=== PATIENT | female | born 1965 | race African-American/Black ===

== ENCOUNTER 2017-03-10 11:08 | Inpatient (IN) | payer OTHER ==
[2017-03-10 14:04] VITALS: BMI 37.5
--- NOTE | 2017-03-10 15:35 | HP ---
COWS - Scale Resting Pulse: 1= [place] 81-100 Sweatin= Chills/Flushing Restless Observation: 3= Extraneous Movement Pupil Size: 2= Moderately Dilated Bone or Joint Aches: 4=Acute Joint/Muscle Pain Runny Nose/ Eye Tearin= Runny Nose/Eyes GI Upset > 30mins: 3= Vomiting/Diarrhea Tremor Observation: 2= Slight Tremor Visible Yawning Observation: 2= >3x During Session Anxiety or Irritability: 2=Irritable/Anxious Goose Flesh Skin: 0=Smooth Skin COWS Score: 22 Admission [facility] Chief Complaint: DETOX TX FOR HEROIN DEPENDENCE Allergies/Adverse Reactions: Allergies Allergy/AdvReac Type Severity Reaction Status Date / Time Penicillins Allergy Severe Hives Verified 03/10/17 16:18 shellfish derived Allergy Severe Hives Verified 03/10/17 16:18 simvastatin Allergy Severe Hives Verified 03/10/17 16:18 History of Present Illness: 51 Y/O AA/MALE WITH A HX HEROIN AND COCAINE DEPENDENCE SEEKING DETOX TX. PT ON RX KLONOPIN BUT TOX NEGATIVE. Exam Limitations: No Limitations - Ebola screening Have you traveled outside of the country in the last 21 days: No Have you had contact with anyone from an Ebola affected area: No Have you been sick,other than usual withdrawal symptoms: No - Review of Systems Constitutional: Chills, Night Sweats, Changes in sleep EENT: reports: Tearing, Nose Congestion, Dental Problems Respiratory: reports: Shortness of Breath (HX ASTHMA/BRONCHITIS), Wheezing, Other (CHF HX) GI: reports: Constipated, Diarrhea, Nausea, Vomiting : reports: Frequency Musculoskeletal: reports: Back Pain, Joint Pain, Muscle Pain, Other (KNEE REPLACEMENT X 2.) Integumentary: reports: Bruising Neuro: reports: Headache, Unsteady Gait (DUE TO LEFT FOOT SX) Endocrine: reports: No Symptoms Reported Hematology: reports: Anemia (ON MEDS), Blood Clots (HX PE) Psychiatric: reports: Orientated x3, Anxious, Depressed Other Systems: Reviewed and Negative Patient History - Patient Medical History Hx Anemia: Yes (ON IRON PILLS) Hx Asthma: Yes (ADVIAR AND ALBUTEROL INHALERS; HX BRONCHITIS) Hx Congestive Heart Failure: Yes Hx Hypertension: Yes (ON LISINOPRIL) Hx Hypercholesterolemia: Yes (NO MEDS) Hx Pacemaker: No HX Cerebrovascular Accident: No Hx Seizures: No Hx Diabetes: Yes (BORDERLINE BUT NOT CURRENTLY ON MED;INSULIN WHILE HOSPITALIZED IN THE PAST.) Hx Gastrointestinal Disorders: Yes (GERD-PRILOSEC ) Hx Genitourinary Disorders: No Hx Sexually Transmitted Disorders: No Hx Renal Disease (ESRD): No Hx Thyroid Disease: No Hx Human Immunodeficiency Virus (HIV): No (NEGATIVE HX) Hx Hepatitis C: No Hx Depression: Yes (ANXIETY DISORDER ON KLONOPIN) Hx Suicide Attempt: No (DENIES) - Patient Surgical History Past Surgical History: Yes Hx Cholecystectomy: Yes (1985) Hx Section: Yes (X 4) Hx Orthopedic Surgery: Yes (KNEE REPLACEMENTS IN 2014 RIGHT KNEE;LEFT KNEE 2015 ) Hx Hysterectomy: No Other Surgical History: LEFT FOOT SX IN 2015 Anesthesia Reaction: No - PPD History Previous Implant?: Yes (PPD+ WITH INH + B6 FOR ALMOST ONE YR) Documented Results: Positive w/o proof Implanted On Prior [facility] Admission?: No PPD to be Administered?: No - Reproductive History Patient is a Female of Child Bearing Age (11 -55 yrs old): Yes LMP comment: ONE YEAR AGO Patient : No - Smoking Cessation Smoking history: Current every day smoker Have you smoked in the past 12 months: Yes Aproximately how many cigarettes per day: 10 Hx Chewing Tobacco Use: No Initiated information on smoking cessation: Yes 'Breaking Loose' booklet given: 03/10/17 - Substance & Tx. History Hx Substance Use: Yes (HEROIN/COCAINE) Substance Use Type: Cocaine, Heroin Hx Substance Use Treatment: Yes - Substances Abused Heroin Route: Inhalation Frequency: Daily Amount used: 3-4 BAGS Age of first use: 33 Date of Last Use: 03/09/17 Cocaine Route: Smoking Frequency: Daily Amount used: $200-300 Age of first use: 17 Date of Last Use: 03/09/17 Family Disease History - Family Disease History Family Disease History: Diabetes: Father (), Mother (), Son Admission Physical Exam BHS - Vital Signs Vital Signs: Vital Signs - 24 hr 03/10/17 13:45 Temperature 97 F L Pulse Rate 89 Respiratory 20 Rate Blood Pressure 120/86 - Physical General Appearance: Yes: Moderate Distress, Irritable, Anxious HEENTM: Yes: EOMI, Normocephalic, SHIRA, Pharynx Normal Respiratory: Yes: Chest Non-Tender, Lungs Clear, Normal Breath Sounds, No Respiratory Distress Neck: Yes: Supple, Trachea in good position Breast: Yes: Breast Exam Deferred Cardiology: Yes: Regular Rhythm, S1, S2 Abdominal: Yes: Normal Bowel Sounds, Non Tender, Soft Genitourinary: Yes: Other (N/C) Back: Yes: Within Normal Limits Musculoskeletal: Yes: full range of Motion, Gait Steady Extremities: Yes: Normal Range of Motion, Non-Tender Neurological: 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, Fully Oriented, Alert Integumentary: Yes: Dry, Warm Lymphatic: Yes: Within Normal Limits - Diagnostic (1) Uncomplicated opioid dependence Current Visit: Yes Status: Acute (2) Cocaine dependence, uncomplicated Current Visit: Yes Status: Acute (3) Anemia Current Visit: Yes Status: Chronic Qualifiers: Anemia type: iron deficiency (4) Asthma Current Visit: Yes Status: Chronic Qualifiers: Asthma severity: mild intermittent Asthma complication type: uncomplicated Qualified Code(s): J45.20 - Mild intermittent asthma, uncomplicated (5) CHF (congestive heart failure) Current Visit: Yes Status: Chronic (6) Hypertension Current Visit: Yes Status: Chronic Qualifiers: Hypertension type: essential hypertension Qualified Code(s): I10 - Essential (primary) hypertension (7) Borderline diabetes mellitus Current Visit: Yes Status: Suspected (8) PPD positive, treated Current Visit: Yes Status: Resolved (9) GERD (gastroesophageal reflux disease) Current Visit: Yes Status: Chronic Qualifiers: Esophagitis presence: without esophagitis Qualified Code(s): K21.9 - Gastro-esophageal reflux disease without esophagitis (10) Hx pulmonary embolism Current Visit: Yes Status: Resolved Comment: ON XARELTO THERAPY Cleared for Admission BHS - Detox or Rehab Detox Regimen/Protocol: Methadone BHS Breath Alcohol Content Breath Alcohol Content: 0 Urine Pregancy Test - Result Urine Test Results: Negative- NO Line Present Urine Drug Screen - Results Drug Screen Negative: No Urine Drug Screen Results: FAISAL-Cocaine, OPI-Opiates, MTD-Methadone
[2017-03-10] MEDS ORDERED: MAGNESIUM CITRATE 300 ML BOTTLE PO PRN (16:12)
[2017-03-10] MEDS ORDERED: MENTHOL/PHENOL 1 EACH UD MM PRN (16:12)
[2017-03-10] MEDS ORDERED: NICOTINE POLACRILEX 2 MG GUM BC PRN (16:12)
[2017-03-10] MEDS ORDERED: MAG HYDROX/AL HYDROX/SIMETH 30 ML UNIT-DOSE CUP PO PRN (16:12)
[2017-03-10] MEDS ORDERED: guaiFENesin/D-METHORPHAN HB 10 ML UNIT-DOSE CUPS PO PRN (16:12)
[2017-03-10] MEDS ORDERED: P-EPHED 60MG/TRIPROLIDI 2.5MG TABLET PO PRN (16:12)
[2017-03-10] MEDS ORDERED: LOPERAMIDE HCL 2 MG CAPSULE PO PRN (16:12)
[2017-03-10] MEDS ORDERED: MAGNESIUM HYDROX 2400MG/30ML ORAL SUSPENSION 30 ML CUP PO PRN (16:12)
[2017-03-10] MEDS ORDERED: ACETAMINOPHEN 325 MG TABLET (FP) PO PRN (16:12)
[2017-03-10] MEDS ORDERED: IBUPROFEN 400 MG TABLET (FP) PO PRN (16:12)
[2017-03-10] MEDS ORDERED: ALBUTEROL SO4 6.7 GM HFA INHALER IH PRN (16:48)
[2017-03-10] MEDS ORDERED: METHADONE HCL 10 MG TABLET (FOR DETOX USE ONLY) PO ONE ×2 (17:45→23:00)
[2017-03-10] MEDS: diazePAM 5 MG TABLET PO PRN ×2 (18:27→22:07)
[2017-03-10] MEDS: NICOTINE 14 MG/24 HOURS TOPICAL PATCH TD SCH (20:36)
[2017-03-10] MEDS: THIAMINE HCL 100 MG TABLET (FP) PO SCH (22:07)
[2017-03-10] MEDS: CYCLOBENZAPRINE HCL 10 MG TABLET (FP) PO SCH (22:08)
[2017-03-10] MEDS: GABAPENTIN 300 MG CAPSULE (FP) PO SCH (22:08)
[2017-03-11] MEDS: GABAPENTIN 300 MG CAPSULE (FP) PO SCH ×3 (06:20→22:15)
[2017-03-11] MEDS ORDERED: METHADONE HCL 10 MG TABLET (FOR DETOX USE ONLY) PO ONE (10:00)
--- NOTE | 2017-03-11 10:26 | CONSULT ---
[facility] Psychiatric Consult - Data Date of interview: 03/11/17 Admission source: [facility] Identifying data: This is 51 years old female with no psychiatric hospitalization history intoxicated with Opioids, Cocaine, Xanax and Nicotine Substance Abuse History: - Smoking Cessation. Smoking history: Current every day smoker. Have you smoked in the past 12 months: Yes. Aproximately how many cigarettes per day: 10. Hx Chewing Tobacco Use: No. Initiated information on smoking cessation: Yes. 'Breaking Loose' booklet given: 03/10/17. - Substance & Tx. History. Hx Substance Use: Yes (HEROIN/COCAINE). Substance Use Type: Cocaine, Heroin. Hx Substance Use Treatment: Yes. - Substances Abused. Heroin. Route: Inhalation. Frequency: Daily. Amount used: 3-4 BAGS. Age of first use: 33. Date of Last Use: 03/09/17. Cocaine. Route: Smoking. Frequency: Daily. Amount used: $200-300. Age of first use: 17. Date of Last Use: 03/09/17 Medical History: Anemia history, Asthma, CHF, GERD, HTN, PPD+ Hisotyr, Psychiatric History: Patient reports history of depressionj and anxiety, as per compouter there is a history of Borderline personality,. Repoprts taking prior to admission: Trazodone 50mg po qhs. Gabapention 300mg po tid Physical/Sexual Abuse/Trauma History: Denies Additional Comment: Trazodone 50mg po qhs. Gabapention 300mg po tid Mental Status Exam - Mental Status Exam Alert and Oriented to: Person Cognitive Function: Fair Patient Appearance: Unkempt Mood: Sad Affect: Flat Patient Behavior: Sedated Speech Pattern: Delayed Voice Loudness: Mildly Soft/Quiet Thought Process: Circumstantial Thought Disorder: Being Controlled Hallucinations: Denies Suicidal Ideation: Denies Homicidal Ideation: Denies Insight/Judgement: Fair Sleep: Difficulty falling asleep Appetite: Fair Muscle strength/Tone: Normal Gait/Station: Shuffling Additional Comments: Trazodone 50mg po qhs. Gabapention 300mg po tid Psychiatric Findings - Problem List ([place] 1, 2,3) (1) Cocaine dependence, uncomplicated Current Visit: Yes Status: Acute (2) Uncomplicated opioid dependence Current Visit: Yes Status: Acute (3) Borderline diabetes mellitus Current Visit: Yes Status: Suspected (4) Drug-induced mood disorder Current Visit: Yes Status: Acute - Initial Treatment Plan Initial Treatment Plan: Trazodone 50mg po qhs. Gabapention 300mg po tid
[2017-03-11] MEDS ORDERED: AMMONIUM LACTATE 12% LOTION 225 GM BOTTLE TP PRN (10:34)
--- NOTE | 2017-03-11 10:39 | PN ---
BHS COWS - Scale Resting Pulse: 0= [place] 80 or Below Sweatin= Chills/Flushing Restless Observation: 1= Difficult to Sit Still Pupil Size: 1= Pupils >than Normal Bone or Joint Aches: 2= Severe Diffuse Aches Runny Nose/ Eye Tearin= Nasal Congestion GI Upset > 30mins: 1= Stomach Cramp Tremor Observation of Outstretched Hands: 1= Tremor [place], Not Seen Yawning Observation: 0= None Anxiety or Irritability: 2=Irritable/Anxious Goose Flesh Skin: 0=Smooth Skin COWS Score: 10 BHS Progress Note (SOAP) Subjective: interrupted sleep, sweats, dry skin Objective: 03/11/17 10:37 Vital Signs Temperature 97.7 F 03/11/17 10:17 Pulse Rate 73 03/11/17 10:17 Respiratory Rate 18 03/11/17 10:17 Blood Pressure 129/77 03/11/17 10:17 O2 Sat by Pulse Oximetry (%) Laboratory Tests 03/10/17 03/11/17 03/11/17 23:02 06:00 06:00 WBC 9.6 RBC 5.66 H Hgb 15.3 Hct 47.7 H MCV 84.2 MCHC 32.1 RDW 14.5 Plt Count 219 MPV 9.6 Sodium 143 Potassium 4.2 Chloride 106 Carbon Dioxide 31 Anion Gap 6 L BUN 14 Creatinine 0.9 Creat Clearance w eGFR > 60 Random Glucose 89 Calcium 8.9 Total Bilirubin 0.2 AST 11 L ALT 22 Alkaline Phosphatase 92 Total Protein 7.9 Albumin 3.9 Urine Color Dkyellow Urine Appearance Cloudy Urine pH 5.0 Ur Specific [place] 1.026 Urine Protein Negative Urine Glucose (UA) Negative Urine Ketones Negative Urine Blood Negative Urine Nitrite Negative Urine Bilirubin Negative Urine Urobilinogen Negative Ur Leukocyte Esterase Negative pt aox3 in nad ambulating 03/11/17 10:38 Assessment: 03/11/17 10:37 withdrawal sx's dry skin Plan: cont detox increase fluids lachydrin lotion pts own ivory soap
[2017-03-11] MEDS: PRENATAL VITAMINS W/ FOLIC ACID TABLET (FP) PO SCH (10:40)
[2017-03-11] MEDS: ASPIRIN 81 MG CHEWABLE TABLETS PO SCH (10:40)
[2017-03-11] MEDS: diazePAM 5 MG TABLET PO PRN ×2 (10:41→22:15)
[2017-03-11] MEDS: LISINOPRIL 20 MG TABLET (FP) PO SCH (10:41)
[2017-03-11] MEDS: RIVAROXABAN 20 MG TABLET PO SCH (10:41)
[2017-03-11] MEDS: FUROSEMIDE 40 MG TABLET (FP) PO SCH (10:41)
[2017-03-11] MEDS: NICOTINE 14 MG/24 HOURS TOPICAL PATCH TD SCH (10:42)
--- NOTE | 2017-03-11 11:46 | EKG ---
Test Reason : Blood Pressure : / mmHG Vent. Rate : 069 BPM Atrial Rate : 069 BPM P-R Int : 154 ms QRS Dur : 114 ms QT Int : 404 ms P-R-T Axes : 051 007 014 degrees QTc Int : 432 ms NORMAL SINUS RHYTHM NORMAL ECG NO PREVIOUS ECGS AVAILABLE Confirmed by JUAN MANUEL JORDAN MD ([id number]) on 03/11/2017 11:46:14 AM Referred By: Confirmed By:JUAN MANUEL JORDAN MD
[2017-03-11] MEDS: diphenhydrAMINE HCL 50 MG CAPSULE PO PRN (22:15)
[2017-03-11] MEDS: CYCLOBENZAPRINE HCL 10 MG TABLET (FP) PO SCH (22:15)
[2017-03-11] MEDS: THIAMINE HCL 100 MG TABLET (FP) PO SCH (22:15)
[2017-03-12] MEDS: GABAPENTIN 300 MG CAPSULE (FP) PO SCH ×3 (05:32→22:26)
[2017-03-12] MEDS ORDERED: METHADONE HCL 5 MG TABLET (FOR DETOX USE ONLY) PO ONE (10:00)
[2017-03-12] MEDS: FUROSEMIDE 40 MG TABLET (FP) PO SCH (10:33)
[2017-03-12] MEDS: PRENATAL VITAMINS W/ FOLIC ACID TABLET (FP) PO SCH (10:33)
[2017-03-12] MEDS: ASPIRIN 81 MG CHEWABLE TABLETS PO SCH (10:33)
[2017-03-12] MEDS: LISINOPRIL 20 MG TABLET (FP) PO SCH (10:33)
[2017-03-12] MEDS: RIVAROXABAN 20 MG TABLET PO SCH (10:34)
[2017-03-12] MEDS: NICOTINE 14 MG/24 HOURS TOPICAL PATCH TD SCH (10:34)
[2017-03-12] MEDS: diazePAM 5 MG TABLET PO PRN ×2 (11:14→22:26)
--- NOTE | 2017-03-12 11:19 | PN ---
[facility] Progress Note Note: Psychiatry Attending's note : Patient is asking for trazodone. Dr Wilkerson's note reviewed. Trazodone 50 mg po hs is ordered. As per patient's request/treatment plan. Side effects/benefits discussed with patient. Consent (verbal) is expressed.
--- NOTE | 2017-03-12 13:19 | PN ---
BHS COWS - Scale Resting Pulse: 0= [place] 80 or Below Sweatin= Chills/Flushing Restless Observation: 1= Difficult to Sit Still Pupil Size: 0= Normal to Room Light Bone or Joint Aches: 2= Severe Diffuse Aches Runny Nose/ Eye Tearin= Runny Nose/Eyes GI Upset > 30mins: 1= Stomach Cramp Tremor Observation of Outstretched Hands: 2= Slight Tremor Visible Yawning Observation: 1= 1-2x During Session Anxiety or Irritability: 2=Irritable/Anxious Goose Flesh Skin: 0=Smooth Skin COWS Score: 12 BHS Progress Note (SOAP) Subjective: Body Aches, Tremors, Back Ache. Objective: PT. A & O X 2 (DISORIENTED ABOUT DAY / DATE). PT. OBSERVED AMBULATING ON UNIT. 03/12/17 13:16 Vital Signs Temperature 98.1 F 03/12/17 11:25 Pulse Rate 78 03/12/17 11:25 Respiratory Rate 18 03/12/17 11:25 Blood Pressure 119/82 03/12/17 11:25 O2 Sat by Pulse Oximetry (%) Laboratory Last Values WBC 9.6 K/mm3 (4.0-10.0) 03/11/17 06:00 RBC 5.66 M/mm3 (3.60-5.2) H 03/11/17 06:00 Hgb 15.3 GM/dL (10.7-15.3) 03/11/17 06:00 Hct 47.7 % (32.4-45.2) H 03/11/17 06:00 MCV 84.2 fl (80-96) 03/11/17 06:00 MCHC 32.1 g/dl (32.0-36.0) 03/11/17 06:00 RDW 14.5 % (11.6-15.6) 03/11/17 06:00 Plt Count 219 K/MM3 (134-434) 03/11/17 06:00 MPV 9.6 fl (7.5-11.1) 03/11/17 06:00 Sickle Cell Screen Negative (NEGATIVE) 03/11/17 06:00 Sodium 143 mmol/L (136-145) 03/11/17 06:00 Potassium 4.2 mmol/L (3.5-5.1) 03/11/17 06:00 Chloride 106 mmol/L (98-107) 03/11/17 06:00 Carbon Dioxide 31 mmol/L (21-32) 03/11/17 06:00 Anion Gap 6 (8-16) L 03/11/17 06:00 BUN 14 mg/dL (7-18) 03/11/17 06:00 Creatinine 0.9 mg/dL (0.55-1.02) 03/11/17 06:00 Creat Clearance w eGFR > 60 (>60) 03/11/17 06:00 Random Glucose 89 mg/dL (74-106) 03/11/17 06:00 Calcium 8.9 mg/dL (8.5-10.1) 03/11/17 06:00 Total Bilirubin 0.2 mg/dL (0.2-1.0) 03/11/17 06:00 AST 11 U/L (15-37) L 03/11/17 06:00 ALT 22 U/L (12-78) 03/11/17 06:00 Alkaline Phosphatase 92 U/L (45-117) 03/11/17 06:00 Total Protein 7.9 g/dl (6.4-8.2) 03/11/17 06:00 Albumin 3.9 g/dl (3.4-5.0) 03/11/17 06:00 Urine Color Dkyellow 03/10/17 23:02 Urine Appearance Cloudy 03/10/17 23:02 Urine pH 5.0 (5.0-8.0) 03/10/17 23:02 Ur Specific [place] 1.026 (1.001-1.035) 03/10/17 23:02 Urine Protein Negative (NEGATIVE) 03/10/17 23:02 Urine Glucose (UA) Negative (NEGATIVE) 03/10/17 23:02 Urine Ketones Negative (NEGATIVE) 03/10/17 23:02 Urine Blood Negative (NEGATIVE) 03/10/17 23:02 Urine Nitrite Negative (NEGATIVE) 03/10/17 23:02 Urine Bilirubin Negative (NEGATIVE) 03/10/17 23:02 Urine Urobilinogen Negative E.U./dl (0.2-1.0) 03/10/17 23:02 Ur Leukocyte Esterase Negative (NEGATIVE) 04/12/17 23:02 RPR Titer Nonreactive (NONREACTIVE) 03/11/17 06:00 LABS NOTED. Assessment: 03/12/17 13:17 WITHDRAWAL SYMPTOMS. Plan: CONTINUE DETOX. ADVISED PATIENT TO FOLLOW-UP WITH ZONE MANAGER / REHAB MEDICAL PROVIDER AFTER DISCHARGE FROM DETOX FOR ABNORMAL ADMISSION LAB VALUES.
[2017-03-12] MEDS: THIAMINE HCL 100 MG TABLET (FP) PO SCH (22:26)
[2017-03-12] MEDS: CYCLOBENZAPRINE HCL 10 MG TABLET (FP) PO SCH (22:26)
[2017-03-12] MEDS: traZODone HCL 50 MG TABLET (FP) PO SCH (22:26)
[2017-03-13] MEDS: GABAPENTIN 300 MG CAPSULE (FP) PO SCH ×3 (06:12→22:26)
[2017-03-13] MEDS ORDERED: METHADONE HCL 5 MG TABLET (FOR DETOX USE ONLY) PO ONE (10:00)
[2017-03-13] MEDS: ASPIRIN 81 MG CHEWABLE TABLETS PO SCH (10:43)
[2017-03-13] MEDS: PRENATAL VITAMINS W/ FOLIC ACID TABLET (FP) PO SCH (10:43)
[2017-03-13] MEDS: RIVAROXABAN 20 MG TABLET PO SCH (10:44)
[2017-03-13] MEDS: LISINOPRIL 20 MG TABLET (FP) PO SCH (10:44)
[2017-03-13] MEDS: FUROSEMIDE 40 MG TABLET (FP) PO SCH (10:44)
[2017-03-13] MEDS: NICOTINE 14 MG/24 HOURS TOPICAL PATCH TD SCH (10:45)
[2017-03-13] MEDS: diazePAM 5 MG TABLET PO PRN ×2 (10:46→14:40)
[2017-03-13] MEDS: FLUTICASONE/SALMETEROL 100 MCG/50 MCG DISKUS IH SCH ×2 (14:36→22:28)
[2017-03-13] MEDS: CYCLOBENZAPRINE HCL 10 MG TABLET (FP) PO PRN ×2 (14:40→22:26)
--- NOTE | 2017-03-13 15:10 | PN ---
BHS Progress Note (SOAP) Subjective: ALERT,IRRITABLE,ANXIOUS,INTERRUPTED SLEEP,PAIN IN THE BODY Objective: 03/13/17 15:09 Vital Signs Temperature 97.9 F 03/13/17 10:30 Pulse Rate 75 03/13/17 10:30 Respiratory Rate 16 03/13/17 10:30 Blood Pressure 124/91 03/13/17 10:30 O2 Sat by Pulse Oximetry (%) Assessment: 03/13/17 15:10 WITHDRAWAL SYMPTOM Plan: CONTINUE DETOX,REPEAT INR IN AM
[2017-03-13] MEDS: THIAMINE HCL 100 MG TABLET (FP) PO SCH (22:26)
[2017-03-13] MEDS: diphenhydrAMINE HCL 50 MG CAPSULE PO PRN (22:26)
[2017-03-13] MEDS: traZODone HCL 50 MG TABLET (FP) PO SCH (22:26)
[2017-03-14] MEDS: GABAPENTIN 300 MG CAPSULE (FP) PO SCH ×3 (06:03→22:37)
[2017-03-14] MEDS ORDERED: ERGOCALCIFEROL (VITAMIN D2) 50,000 UNIT CAPSULE (FP) PO SCH (10:00)
[2017-03-14] MEDS ORDERED: METHADONE HCL 10 MG TABLET (FOR DETOX USE ONLY) PO ONE (10:00)
[2017-03-14] MEDS: ASPIRIN 81 MG CHEWABLE TABLETS PO SCH (10:47)
[2017-03-14] MEDS: CYCLOBENZAPRINE HCL 10 MG TABLET (FP) PO PRN ×2 (10:47→22:37)
[2017-03-14] MEDS: FUROSEMIDE 40 MG TABLET (FP) PO SCH (10:47)
[2017-03-14] MEDS: RIVAROXABAN 20 MG TABLET PO SCH (10:47)
[2017-03-14] MEDS: LISINOPRIL 20 MG TABLET (FP) PO SCH (10:47)
[2017-03-14] MEDS: PRENATAL VITAMINS W/ FOLIC ACID TABLET (FP) PO SCH (10:47)
[2017-03-14] MEDS: FLUTICASONE/SALMETEROL 100 MCG/50 MCG DISKUS IH SCH ×2 (10:47→22:39)
[2017-03-14] MEDS: hydrOXYzine PAMOATE 25 MG CAPSULE (FP) PO PRN (10:48)
[2017-03-14] MEDS: NICOTINE 14 MG/24 HOURS TOPICAL PATCH TD SCH (10:48)
--- NOTE | 2017-03-14 14:23 | PN ---
BHS Progress Note (SOAP) Subjective: ALERT,IRRITABLE,ANXIOUS,INTERRUPTED SLEEP Objective: 03/14/17 14:22 Vital Signs Temperature 97.9 F 03/14/17 14:18 Pulse Rate 78 03/14/17 14:18 Respiratory Rate 16 03/14/17 14:18 Blood Pressure 136/88 03/14/17 14:18 O2 Sat by Pulse Oximetry (%) Assessment: 03/14/17 14:22 WITHDRAWAL SYMPTOM 03/14/17 14:22 BGM 93 Plan: CONTINUE DETOX,DISCHARGE IN AM
[2017-03-14] MEDS: THIAMINE HCL 100 MG TABLET (FP) PO SCH (22:37)
[2017-03-14] MEDS: traZODone HCL 50 MG TABLET (FP) PO SCH (22:37)
[2017-03-14] MEDS: diphenhydrAMINE HCL 50 MG CAPSULE PO PRN (22:38)
[2017-03-15] MEDS ORDERED: METHADONE HCL 5 MG TABLET (FOR DETOX USE ONLY) PO ONE (06:00)
[2017-03-15] MEDS: GABAPENTIN 300 MG CAPSULE (FP) PO SCH (06:10)
[2017-03-15] MEDS: CYCLOBENZAPRINE HCL 10 MG TABLET (FP) PO PRN (06:12)
--- NOTE | 2017-03-15 08:32 | DS ---
[facility] Detox Discharge Summary Admission Date: 03/10/17 Discharge Date: 03/15/17 - History Present History: Cocaine Dependence, Opioid Dependence - Physical Exam Results Vital Signs: Vital Signs Temperature 97.5 F L 03/15/17 06:00 Pulse Rate 73 03/15/17 06:00 Respiratory Rate 20 03/15/17 06:00 Blood Pressure 113/71 03/15/17 06:00 O2 Sat by Pulse Oximetry (%) - Treatment Hospital Course: Detox Protocol Followed, Detoxed Safely, Responded well, Discharged Condition Good - Medication Discharge Medications: Ambulatory Orders Albuterol Sulfate Inhaler - [Ventolin Hfa Inhaler -] 2 inh PO Q4H PRN 03/10/17 Aspirin [ASA -] 81 mg PO DAILY 03/10/17 Clonazepam [Klonopin -] 0.5 mg PO BID 03/10/17 Cyanocobalamin (Vitamin B-12) [Vitamin B-12] 1,000 mcg PO DAILY 03/10/17 Ergocalciferol [Drisdol -] 50,000 unit PO WEEKLY 03/10/17 Ferrous Sulfate [Feosol] 325 mg PO Q8H 03/10/17 Furosemide [Lasix -] 40 mg PO DAILY 03/10/17 Gabapentin 300 mg PO TID 03/10/17 Lisinopril [Prinivil] 20 mg PO DAILY 03/10/17 Multivitamin [Poly-Vitamin] 1 each PO DAILY 03/10/17 Rivaroxaban [Xarelto -] 20 mg PO DAILY 03/10/17 Salmeterol/Fluticasone [Advair 250Mcg/50Mcg] 1 inh PO BID 03/10/17 Thiamine Mononitrate [Vitamin B-1] 100 mg PO DAILY 03/10/17 Trazodone HCl [Desyrel -] 50 mg PO HS 03/10/17 - Diagnosis (1) Cocaine dependence, uncomplicated Current Visit: Yes Status: Acute (2) Uncomplicated opioid dependence Current Visit: Yes Status: Acute (3) Anemia Current Visit: Yes Status: Chronic Qualifiers: Anemia type: iron deficiency (4) Asthma Current Visit: Yes Status: Chronic Qualifiers: Asthma severity: mild intermittent Asthma complication type: uncomplicated Qualified Code(s): J45.20 - Mild intermittent asthma, uncomplicated (5) CHF (congestive heart failure) Current Visit: Yes Status: Chronic (6) GERD (gastroesophageal reflux disease) Current Visit: Yes Status: Chronic Qualifiers: Esophagitis presence: without esophagitis Qualified Code(s): K21.9 - Gastro-esophageal reflux disease without esophagitis (7) Hypertension Current Visit: Yes Status: Chronic Qualifiers: Hypertension type: essential hypertension Qualified Code(s): I10 - Essential (primary) hypertension - AMA Did Patient Leave Against Medical Advice: No
[2017-03-15] MEDS: LISINOPRIL 20 MG TABLET (FP) PO SCH (09:46)
[2017-03-15] MEDS: ASPIRIN 81 MG CHEWABLE TABLETS PO SCH (09:46)
[2017-03-15] MEDS: FLUTICASONE/SALMETEROL 100 MCG/50 MCG DISKUS IH SCH (09:47)
[2017-03-15] MEDS: RIVAROXABAN 20 MG TABLET PO SCH (09:48)
[2017-03-15] MEDS: PRENATAL VITAMINS W/ FOLIC ACID TABLET (FP) PO SCH (09:48)
[2017-03-15] MEDS: FUROSEMIDE 40 MG TABLET (FP) PO SCH (09:48)
[2017-03-15] MEDS: hydrOXYzine PAMOATE 25 MG CAPSULE (FP) PO PRN (09:49)
[2017-03-15] MEDS: NICOTINE 14 MG/24 HOURS TOPICAL PATCH TD SCH (09:49)
[2017-03-15 11:43] VITALS: BP 119/55; PULSE 88; TEMP 98
== END 2017-03-15 11:45 | disposition home or self-care (01) | DRG 773 ==
LOC: YASAS 11:08 → Y6N 17:23
PROVIDERS: ADMIT Internal Medicine Addiction Medicine; ATTEND Internal Medicine Addiction Medicine
PROC: HZ2ZZZZ Detoxification Services for Substance Abuse Treatment (ICD-10-PCS; principal; 2017-03-10)
DX: F11.23 Opioid dependence with withdrawal (principal); F14.20 Cocaine dependence, uncomplicated; F17.210 Nicotine dependence, cigarettes, uncomplicated; D50.9 Iron deficiency anemia, unspecified; J45.20 Mild intermittent asthma, uncomplicated; I50.9 Heart failure, unspecified; I10 Essential (primary) hypertension; K21.9 Gastro-esophageal reflux disease without esophagitis; L98.8 Other specified disorders of the skin and subcutaneous tissue; R73.03 Prediabetes; R76.11 Nonspecific reaction to tuberculin skin test without active tuberculosis; Z96.653 Presence of artificial knee joint, bilateral; Z86.711 Personal history of pulmonary embolism; Z79.01 Long term (current) use of anticoagulants
CPT/HCPCS: 36415; 71020-TC; 80053; 81003; 85027; 85660; 86593; 93005; 93010